=== PATIENT | female | born 1930 | race Caucasian/White ===

== ENCOUNTER 2019-07-05 18:41 | Emergency (ER) | payer OTHER ==
[~2019-07-05] VITALS: Ht 154.9 cm; Wt 68.2 kg
[2019-07-05 18:45] VITALS: Ht 154.9 cm; Wt 68.2 kg
[2019-07-06 02:24] VITALS: BP 146/63; PULSE 75; RESP 19
== END 2019-07-06 02:26 | disposition short-term general hospital (02) ==
LOC: E/R 18:41
DX: A41.9 Sepsis, unspecified organism (principal); I10 Essential (primary) hypertension; N13.30 Unspecified hydronephrosis
CPT/HCPCS: 36415; 71045; 74176; 80053; 81003; 83605; 83690; 84484; 85025; 85610; 85730; 87040; 87086; 93005; 96374; 96375; 96376; 99285; J0692; J1170; J2270; J2405; J3370; J7030; J7040